=== PATIENT | female | born 1980 | race Caucasian/White ===

== ENCOUNTER 2021-05-30 10:11 | Outpatient (REF) | payer OTHER, SELFPAY ==
[2021-05-30 10:44] LABS: MANUAL DIFF FLAG NO
[2021-05-30 10:49] LABS: Basophils Percent Auto 0.2 % (0-2); Eosinophils Absolute Auto 0.3 X10*3/uL (0.0-0.4); Eosinophils Percent Auto 2.1 % (0-4); Hematocrit 38.1 % (37-47); Hemoglobin 11.3 g/dl (12.0-16.0); Imm Gran Abs Auto 0.08 X10*3/uL (0.00-0.03); Imm Gran Pct Auto 0.7 % (0.0-0.4); Lymphocytes Absolute Auto 4.6 X10*3/uL (1.2-4.9); Lymphocytes Percent Auto 38.3 % (20-40); Mean Corpuscular HGB Conc 29.7 g/dl (31.0-35.0); Mean Corpuscular Hemoglobin 21.4 pg (27.0-33.0); Mean Platelet Volume 9.6 fL (9.4-12.3); Monocytes Absolute Auto 0.5 X10*3/uL (0.1-1.2); Monocytes Percent Auto 3.9 % (2-11); Neutrophils Absolute Auto 6.6 X10*3/uL (2.0-8.3); Neutrophils Percent Auto 54.8 % (45-73); Platelet Count 396 X10*3/uL (160-400); Red Blood Count 5.29 X10*6/uL (4.20-5.50); Red Cell Distribution Width 17.2 % (11.0-16.0); White Blood Count 12.1 X10*3/uL (4.8-10.8)
[2021-05-30 11:55] LABS: Anion Gap 13 (12-20); Blood Urea Nitrogen 8 mg/dL (9-16); Carbon Dioxide 23 mmol/L (22-29); Chloride 105 mmol/L (96-108); Estimated Glomerular Filt Rate > 60; Potassium 4.4 mmol/L (3.3-5.1); Sodium 137 mmol/L (135-145)
== END 2021-05-30 10:12 | disposition home or self-care (01) ==
LOC: HO.LAB 10:11
PROVIDERS: PCP Family Medicine; Visit Provider Family Medicine
DX: I10 Essential (primary) hypertension (principal); R59.1 Generalized enlarged lymph nodes
CPT/HCPCS: 36415; 80051; 82565; 84520; 85025

== ENCOUNTER 2022-05-26 09:44 | Outpatient (REF) | payer OTHER, SELFPAY ==
[2022-05-26 10:52] LABS: Anion Gap 10 (12-20); Blood Urea Nitrogen 10 mg/dL (9-16); Carbon Dioxide 26 mmol/L (22-29); Chloride 105 mmol/L (96-108); Cholesterol 225 mg/dL; Estimated Glomerular Filt Rate > 60; Glucose Fasting 120 mg/dL (60-99); HDL Cholesterol 38 mg/dL; LDL Cholesterol Calculated 163 mg/dl; Potassium 4.2 mmol/L (3.3-5.1); Sodium 137 mmol/L (135-145); Triglycerides 121 mg/dL
== END 2022-05-26 09:45 | disposition home or self-care (01) ==
LOC: HO.LAB 09:44
PROVIDERS: PCP Family Medicine; Visit Provider Family Medicine
DX: I10 Essential (primary) hypertension (principal); E78.00 Pure hypercholesterolemia, unspecified; R73.9 Hyperglycemia, unspecified
CPT/HCPCS: 36415; 80051; 80061; 82565; 82947; 84520

== ENCOUNTER 2022-08-25 10:38 | Outpatient (REF) | payer OTHER, SELFPAY ==
--- NOTE | ~2022-08-25 | XR_ITS ---
EXAMINATION: XR CHEST CLINICAL INFORMATION: Wheezing. COMPARISON: None TECHNIQUE: 2 views of the chest were obtained. FINDINGS: No significant abnormality is noted involving the heart, lungs, mediastinum, bony thorax or soft tissues. XR/XR chest 2V IMPRESSION: Unremarkable chest examination.
== END 2022-08-25 10:39 | disposition home or self-care (01) ==
LOC: HO.XRAY 10:38
PROVIDERS: PCP Family Medicine; Visit Provider Family Medicine
DX: R06.2 Wheezing (principal)
CPT/HCPCS: 71046

== ENCOUNTER 2023-03-25 20:24 | Emergency (ER) | payer OTHER, SELFPAY ==
--- NOTE | ~2023-03-25 | CT_ITS ---
EXAMINATION: CT ANGIOGRAM HEAD CT ANGIOGRAM NECK CLINICAL INFORMATION: Reason for Exam l sided weakness COMPARISON: Same day noncontrast head CT TECHNIQUE: Initial noncontrast art handler imaging of the head and neck was performed. Comparison is made with noncontrast head CT from earlier today. Test bolus sequences followed by intravenous administration 70 mL of Omnipaque 350. Helical imaging was performed in the axial plane from the aortic arch to the skull vertex. Delayed postcontrast imaging of the head was also performed. The data was processed at the vascular technologist's workstation for generation of MIP sequences. Angled MIPs and volume rendered reformatted images were also generated at an offline 3D workstation. Stenoses are assessed in accordance with NASCET criteria unless otherwise indicated. DLP: [id number] examination was performed using dose optimization techniques as appropriate, variously including the following: *Automated exposure control. *Adjustment of mA and/or kV according to patient size (this includes techniques or standardized protocols for targeted exams where dose is matched to indication/reason for exam; i.e. extremities or head). *Use of iterative reconstruction technique. FINDINGS: CT Head: There is no evidence of acute intracranial hemorrhage or edematous territorial infarction. There is no abnormal attenuation within the brain parenchyma. Patino-white matter differentiation is preserved. The ventricles are normal in size and configuration. No evidence for obstructive hydrocephalus. No abnormal mass effect or midline shift. No extra-axial fluid collections. No pathologic intra-axial enhancement or regional oligemia. No acute soft tissue or osseous abnormalities. The mastoid air cells and paranasal sinuses are clear. CT Neck: Increased number of nonpathologically enlarged cervical lymph nodes which may be reactive. Prominent soft tissues of the tongue base, most likely reflecting adenoidal hypertrophy. There is also enlargement of the nasopharyngeal soft tissues. The thyroid gland and remaining cervical soft tissues are within normal limits. No significant abnormalities of the cervical spine. CT Upper Chest: The visualized lung apices and upper mediastinum are within normal limits. Neck CTA: Aortic Arch: Related to patient body habitus, the aortic arch and proximal arch branch vessels are not well evaluated due to extensive artifact Right Common Carotid Artery: Where visualized, no significant stenosis. Cervical Right Internal Carotid Artery: Normal opacification without focal stenosis or occlusion. Left Common Carotid Artery: Where visualized, no significant stenosis. Cervical Left Internal Carotid Artery: Normal opacification without focal stenosis or occlusion. Cervical Right Vertebral Artery: No focal stenosis or occlusion. Cervical Left Vertebral Artery: No focal stenosis or occlusion. Brain CTA: Intracranial Internal Carotid Arteries: No focal stenosis or occlusion. Right Anterior Cerebral Artery: Normal A1 segment. Normal opacification of the distal CALEB segments. Left Anterior Cerebral Artery: Normal A1 segment. Normal opacification of the distal CALEB segments. Anterior Communicating Artery: Normal. Right Middle Cerebral Artery: Normal M1 segment of the MCA without focal stenosis or occlusion. Normal arborization of the distal segments. Left Middle Cerebral Artery: Normal M1 segment of the MCA without focal stenosis or occlusion. Normal arborization of the distal segments. Right Vertebral Artery: Normal V4 segment. Left Vertebral Artery: Normal V4 segment. Basilar Artery: Normal without focal stenosis or occlusion. Normal appearance of the proximal superior cerebellar arteries. Right Posterior Cerebral Artery: Normal P1 segment. Normal opacification of the distal [employer] segments. Left Posterior Cerebral Artery: Normal P1 segment. Normal opacification of the distal FR[employer] segments. Normal opacification of the superior sagittal, straight, transverse, and sigmoid sinuses. CT/CT angio head neck stroke IMPRESSION: 1. No arterial high grade stenosis or large vessel occlusion in the head or neck. Please note that the proximal aortic arch branch vessels are not well evaluated due to artifact related to patient body habitus. 2. Prominent soft tissues at the tongue base and enlargement of the nasopharyngeal soft tissues, likely reflecting adenoidal and lingual tonsillar hypertrophy. Recommend correlation with direct inspection. Impression #[address] West on at 9:08 PM
--- NOTE | ~2023-03-25 | CT_ITS ---
EXAMINATION: CT HEAD WITHOUT CONTRAST (STROKE PROTOCOL) CLINICAL INFORMATION: Stroke protocol. Left-sided weakness COMPARISON: Selected images of the brain MRI of 07/27/2019 TECHNIQUE: Contiguous axial imaging was performed from the skull base to vertex without intravenous administration of contrast. This CT examination was performed using dose optimization techniques as appropriate, variously including the following: *Automated exposure control *Adjustment of mA and/or kV according to patient size (this includes techniques or standardized protocols for targeted exams where dose is matched to indication/reason for exam; i.e. extremities or head) *Use of iterative reconstruction technique DLP: 614 mGy-cm FINDINGS: There is no evidence of acute intracranial hemorrhage, midline shift or mass effect. Patino to white matter differentiation is well preserved. No evidence of acute territorial edematous infarction. Ventricles and cortical sulci are age appropriate. No definite significant abnormal parenchymal attenuation is appreciated. No abnormal extra-axial fluid collection. There is no evidence of hyperdense artery sign. Paranasal sinuses are well-aerated. Osseous calvarium and calvarial soft tissues are unremarkable. Mastoid air cells and middle ear cavities are well-aerated. CT/CT head for stroke IMPRESSION: No acute intracranial pathology. Specifically, there is no evidence of acute intracranial hemorrhage or acute edematous territorial infarction. This critical result was discussed with Anwer at 8:37 PM hours on 03/25/2023. It was ascertained that the content and urgency of the report was understood at the time of direct communication.
--- NOTE | 2023-03-25 20:26 | ECG_ITS ---
Test Reason : STROKE Blood Pressure : / mmHG Vent. Rate : 078 BPM Atrial Rate : 078 BPM P-R Int : 150 ms QRS Dur : 084 ms QT Int : 402 ms P-R-T Axes : 030 025 021 degrees QTc Int : 458 ms Normal sinus rhythm Normal ECG When compared with ECG of 23-DEC-2011 19:45, No significant change was found Referred By: Meño Ferguson Electronically Signed By:CRISTIAN PONCE
[2023-03-25 20:32] LABS: Prothrombin Time Whole Bld POC 11.9 sec (11.1-13.5)
[2023-03-25 20:33] LABS: Glucose, Whole Blood 133 mg/dL (60-115)
--- NOTE | 2023-03-25 20:34 | ED_ITS ---
HPI - Neuro Symptoms/Deficit General Chief Complaint: Stroke Stated Complaint: ? Stoke Alert Time Seen by Provider: 03/25/23 20:26 Source: patient and EMS Mode of arrival: EMS Limitations: no limitations History of Present Illness HPI Narrative: Patient history of depression, migraine headaches comes here for headache on the right side started around 17:30 little more severe than before associated with dizziness patient does get headaches very often almost every other day also has chronic left-sided weakness has seen PCP neurologist in the past with MRI negative had carpal tunnel. No seizure no fever patient also feel nauseated had slow speech Related Data Previous Rx's Medication Instructions Recorded jsliipdepj-vhjbuxhibouxe-vovbhkoq 1 cap PO Q6H PRN headache #20 caps 03/26/23 50 mg-300 mg-40 mg capsule (Fioricet) Allergies Allergy/AdvReac Type Severity Reaction Status Date / Time morphine [MORPHINE] Allergy Intermediate DIFF Verified 03/25/23 21:00 BREATH, CHEST PAIN, shortness of breath shellfish derived Allergy Intermediate HIVES Verified 03/25/23 21:00 [SHELLFISH DERIVED] lisinopril [LISINOPRIL] AdvReac Intermediate COUGH Verified 03/25/23 21:00 shellfish Allergy Unknown rash Uncoded 02/14/18 00:00 Review of Systems Review of Systems: Yes all other systems are reviewed and are negative [facility] Social History Social History Alcohol intake: never Smoked in Last 30 Days: Yes Use of substances other than those prescribed or required for medical reasons: Yes Substance Use Type: Marijuana Substance Use Frequency: Daily Advance Directives: No Advance Directives Information Provided: Yes Patient : No Physical Exam Vital Signs: Vital Signs: Last Vital Signs Temp 98.3 F 03/25/23 22:46 Pulse 80 03/26/23 00:16 Resp 20 03/26/23 00:16 BP 142/59 H 03/26/23 00:16 Pulse Ox 97 03/26/23 00:16 O2 Del Method Room Air 03/26/23 00:16 BMI result Body Mass Index 49.6 Appearance: Alert. Oriented X3. No acute distress. Eyes: PERRLA, No Nystagmus ENT: Pharynx normal. Oral Mucosa moist Neck: Normal inspection. Neck supple. CVS: Normal heart rate and rhythm. Pulses normal. Respiratory: No respiratory distress. Equal air entry bilateral, no wheezing/rales/rhonchi Abdomen: Soft and nontender. Bowel sounds are present, no mass palpable, no CVA tenderness Skin: Skin warm and dry. Normal skin color. Normal skin turgor. Extremities: No lower extremity edema. No calf tenderness Neuro: Oriented X 3. No motor deficit. No sensory deficit.No cerebellar signs , cranial nerves II-XII intact Medications Administered Discontinued Medications Generic Name Dose Route Start Last Admin Trade Name Herberthq PRN Reason Stop Dose Admin Diphenhydramine HCl 50 mg 03/25/23 20:31 03/25/23 21:02 Diphenhydramine Hcl 50 Mg/Ml Vial IVPUSH 03/25/23 20:32 50 mg ONCE ONE Administration Sodium Chloride 1,000 mls @ 999 mls/hr 03/25/23 20:33 03/25/23 22:20 Ns IV 03/25/23 21:33 Infused .Q1H1M ONE Infusion Iohexol 100 ml 03/25/23 20:46 03/25/23 20:46 Iohexol 350 Mg/Ml 100 Ml Infus..Btl IV 03/25/23 20:47 70 ml ONCE ONE Administration Ketorolac Tromethamine 30 mg 03/25/23 23:10 03/25/23 23:39 Ketorolac Tromethamine 30 Mg/Ml Vial IVPUSH 03/25/23 23:11 30 mg ONCE ONE Administration Methylprednisolone Sodium Succinate 125 mg 03/25/23 20:31 03/25/23 21:02 Methylprednisolone Sod Succ 125 Mg/2 Ml Vial IVPUSH 03/25/23 20:32 125 mg ONCE ONE Administration Metoclopramide HCl 10 mg 03/25/23 23:10 03/25/23 23:40 Metoclopramide Hcl 10 Mg/2 Ml Vial IVPUSH 03/25/23 23:11 10 mg ONCE ONE Administration Sumatriptan Succinate 6 mg 03/25/23 21:18 03/25/23 21:48 Sumatriptan Succinate 6 Mg/0.5 Ml Vial SUBCUT 03/25/23 21:19 6 mg ONCE ONE Administration Medical Decision Making Medical Decision Making MDM Narrative: Patient with chronic left-sided weakness with headaches likely migraine had came with dizziness and left-sided weakness which is according to patient's chronic CT head and CTA head neck was negative for CVA case discussed Dr. Shine neurologist patient likely has migraine headache advised to treat migraine headache During stay in the ER patient felt better back to normal at time of discharge speech improved able to ambulate to the bathroom Differential Diagnosis Acute CVA/TIA/complex migraine/conversion syndrome Lab Data [facility] Lab Attestation statement: I reviewed the patient's lab results. 03/25/23 20:44 03/25/23 20:44 Labs: Lab Results 03/25/23 03/25/23 03/25/23 Range/Units 20:27 20:28 20:44 WBC 12.6 H (4.8-10.8) X10*3/uL RBC 4.85 (4.20-5.50) X10*6/uL Hgb 9.3 L (12.0-16.0) g/dl Hct 31.2 L (37.0-47.0) % MCV 64.3 L (80.0-98.0) fL MCH 19.2 L (27.0-33.0) pg MCHC 29.8 L (31.0-35.0) g/dl RDW 18.1 H (11.0-16.0) % Plt Count 392 (160-400) X10*3/uL MPV 9.1 L (9.4-12.3) fL Immature Gran % (Auto) 0.5 H (0.0-0.4) % Neut % (Auto) 57.3 (45-73) % Lymph % (Auto) 34.7 (20-40) % [place] % (Auto) 4.8 (2-11) % Eos % (Auto) 2.5 (0-4) % Baso % (Auto) 0.2 (0-2) % Lymph # (Auto) 4.4 (1.2-4.9) X10*3/uL [place] # (Auto) 0.6 (0.1-1.2) X10*3/uL Eos # (Auto) 0.3 (0.0-0.4) X10*3/uL Baso # (Auto) 0.0 (0.0-0.2) X10*3/uL Abs Immat Gran (auto) 0.06 H (0.00-0.03) X10*3/uL Absolute Neuts (auto) 7.2 (2.0-8.3) x10*3/uL Absolute Nucleated RBC 0.000 (0.0-0.012) X10*3/uL Nucleated RBC % (auto) 0.0 (0.0-0.2) /100WBC PT (10.0-13.1) SEC Whole Blood PT 11.9 (11.1-13.5) sec INR (0.9-1.1) Whole Blood INR 1.0 (0.9-1.1) APTT (26.0-36.4) SEC Sodium (135-145) mmol/L Potassium (3.3-5.1) mmol/L Chloride (96-108) mmol/L Carbon Dioxide (22-29) mmol/L Anion Gap (12-20) BUN (9-16) mg/dL Creatinine (0.5-1.4) mg/dL Estim Creat Clear Calc Estimated GFR POC Glucose 133 H (60-115) mg/dL Random Glucose (60-115) mg/dL Calcium (8.4-10.2) mg/dL Total Creatine Kinase (26-140) U/L Troponin I High Sens (<3.5-17.0) ng/L 03/25/23 03/25/23 03/25/23 Range/Units 20:44 20:44 20:44 WBC (4.8-10.8) X10*3/uL RBC (4.20-5.50) X10*6/uL Hgb (12.0-16.0) g/dl Hct (37.0-47.0) % MCV (80.0-98.0) fL MCH (27.0-33.0) pg MCHC (31.0-35.0) g/dl RDW (11.0-16.0) % Plt Count (160-400) X10*3/uL MPV (9.4-12.3) fL Immature Gran % (Auto) (0.0-0.4) % Neut % (Auto) (45-73) % Lymph % (Auto) (20-40) % [place] % (Auto) (2-11) % Eos % (Auto) (0-4) % Baso % (Auto) (0-2) % Lymph # (Auto) (1.2-4.9) X10*3/uL [place] # (Auto) (0.1-1.2) X10*3/uL Eos # (Auto) (0.0-0.4) X10*3/uL Baso # (Auto) (0.0-0.2) X10*3/uL Abs Immat Gran (auto) (0.00-0.03) X10*3/uL Absolute Neuts (auto) (2.0-8.3) x10*3/uL Absolute Nucleated RBC (0.0-0.012) X10*3/uL Nucleated RBC % (auto) (0.0-0.2) /100WBC PT 10.2 (10.0-13.1) SEC Whole Blood PT (11.1-13.5) sec INR 0.9 (0.9-1.1) Whole Blood INR (0.9-1.1) APTT 30.0 (26.0-36.4) SEC Sodium 138 (135-145) mmol/L Potassium 4.0 (3.3-5.1) mmol/L Chloride 107 (96-108) mmol/L Carbon Dioxide 24 (22-29) mmol/L Anion Gap 11 L (12-20) BUN 9 (9-16) mg/dL Creatinine 0.66 (0.5-1.4) mg/dL Estim Creat Clear Calc 141.7 Estimated GFR > 60 POC Glucose (60-115) mg/dL Random Glucose 110 (60-115) mg/dL Calcium 8.7 (8.4-10.2) mg/dL Total Creatine Kinase 123 (26-140) U/L Troponin I High Sens < 2.7 (<3.5-17.0) ng/L NIH Stroke Scale Internal: Initial- Upon Arrival Time: 20:22 Level of Consciousness: Alert Level of Consciousness Questions: Answers both questions correctly Level of Consciousness Commands: Performs both tasks correctly Best Gaze: Normal Visual: No visual loss Facial Palsy: Normal Motor Arm (Right): No drift Motor Arm (Left): Drift Motor Leg (Right): No drift Motor Leg (Left): Drift Limb Ataxia: Absent Sensory: Normal Best Language: No aphasia Dysarthia: Mild to moderate dysarthria Extinction and Inattention: No abnormality Score: 3 Discharge Plan Discharge Clinical Impression: Migraine-cluster headache syndrome Patient Disposition: Home, Self-Care Instructions: Migraine Headache (ED) Additional Instructions: Your symptoms are likely from migraine Take medication as prescribed Follow-up with your PCP/neurology Prescriptions: New hsoaypziuj-pgfdixqburess-ghom [Fioricet] 50-300-40 mg capsule 1 cap PO Q6H PRN (Reason: headache) Qty: 20 0RF Interventions: ED Discharge Assessment Last Done: 03/26/23 00:25 Discharge Date/Time: 03/26/23 00:26
[2023-03-25 20:38] VITALS: BP 154/81; BP 174/98; PULSE 79; PULSE 97; RESP 16; TEMP 37.1; O2SAT 96; O2SAT 98; BMI 49.6
[2023-03-25] MEDS: iohexoL 350 MG/ML 100 ML INFUS..BTL IV (20:46)
[2023-03-25 20:51] LABS: MANUAL DIFF FLAG NO
[2023-03-25 20:55] LABS: Basophils Percent Auto 0.2 % (0-2); Eosinophils Absolute Auto 0.3 X10*3/uL (0.0-0.4); Eosinophils Percent Auto 2.5 % (0-4); Hematocrit 31.2 % (37.0-47.0); Hemoglobin 9.3 g/dl (12.0-16.0); Imm Gran Abs Auto 0.06 X10*3/uL (0.00-0.03); Imm Gran Pct Auto 0.5 % (0.0-0.4); Lymphocytes Absolute Auto 4.4 X10*3/uL (1.2-4.9); Lymphocytes Percent Auto 34.7 % (20-40); Mean Corpuscular HGB Conc 29.8 g/dl (31.0-35.0); Mean Corpuscular Hemoglobin 19.2 pg (27.0-33.0); Mean Platelet Volume 9.1 fL (9.4-12.3); Monocytes Absolute Auto 0.6 X10*3/uL (0.1-1.2); Monocytes Percent Auto 4.8 % (2-11); Neutrophils Absolute Auto 7.2 x10*3/uL (2.0-8.3); Neutrophils Percent Auto 57.3 % (45-73); Platelet Count 392 X10*3/uL (160-400); Red Blood Count 4.85 X10*6/uL (4.20-5.50); Red Cell Distribution Width 18.1 % (11.0-16.0); White Blood Count 12.6 X10*3/uL (4.8-10.8)
[2023-03-25 21:01] LABS: INTERNATIONAL NORM RATIO 0.9 (0.9-1.1); Prothrombin Time 10.2 SEC (10.0-13.1)
[2023-03-25] MEDS: diphenhydrAMINE HCL 50 MG/ML VIAL IVPUSH (21:02)
[2023-03-25] MEDS: methylPREDNISolone Sod Succ 125 MG/2 ML VIAL IVPUSH (21:02)
[2023-03-25 21:03] LABS: Mean Corpuscular Volume 64.3 fL (80.0-98.0)
[2023-03-25 21:09] LABS: Anion Gap 11 (12-20); Blood Urea Nitrogen 9 mg/dL (9-16); Calcium 8.7 mg/dL (8.4-10.2); Carbon Dioxide 24 mmol/L (22-29); Chloride 107 mmol/L (96-108); Creatinine Clr Calc Pharmacy 141.7; Estimated Glomerular Filt Rate > 60; Glucose Random 110 mg/dL (60-115); Sodium 138 mmol/L (135-145)
[2023-03-25 21:11] LABS: Stroke Lab Use COMPLETE
[2023-03-25] MEDS: 0.9 % Sodium Chloride 1,000 ML 999 ML IV (21:11)
[2023-03-25 21:16] LABS: Troponin-I High Sensitivity < 2.7 ng/L (<3.5-17.0)
[2023-03-25] MEDS: SUMAtriptan succinate 6 MG/0.5 ML VIAL SUBCUT (21:48)
--- NOTE | 2023-03-25 21:52 | PC.NURSE ---
pt medicated per Jan, notified RAGINI Ring
[2023-03-25 22:46] VITALS: BP 151/83; PULSE 76; RESP 20; TEMP 36.8; O2SAT 96
--- NOTE | 2023-03-25 22:46 | PC.NURSE ---
Pt A&Ox4, reports 05/23 constant right sided headache started after dinner at 5:30pm tonight with dizziness x 1 hour. Pt states it feels throbbing and sensitive to light. Pt sent straight to Ct scan, IV line placed. Medicated per JAN. Left sided weakness noted, Dr. Ferguson at bedside, Pt states she usually is weaker on the left side . Pt able to get OOB to bedside commode with staff standby.
[2023-03-25] MEDS: Ketorolac Tromethamine 30 MG/ML VIAL IVPUSH (23:39)
[2023-03-25] MEDS: Metoclopramide HCl 10 MG/2 ML VIAL IVPUSH (23:40)
[2023-03-26 00:16] VITALS: BP 142/59; PULSE 80; RESP 20; O2SAT 97
--- NOTE | 2023-03-26 00:19 | PC.NURSE ---
Pt ambulated to the BR with steady gait. Pt reports some effectiveness to meds given.
== END 2023-03-26 00:26 | disposition home or self-care (01) ==
PROVIDERS: Emergency Provider Internal Medicine
DX: G43.909 Migraine, unspecified, not intractable, without status migrainosus (principal); R53.1 Weakness; R42 Dizziness and giddiness
CPT/HCPCS: 36415; 70450; 70496; 70498; 80048; 82550; 82947; 84484; 85025; 85610; 85730; 93005; 96361; 96372; 96374; 96375; 96376; 99285; J1200; J1885; J2765; J2930; J3030; Q9967

== ENCOUNTER 2023-12-09 11:54 | Outpatient (REF) | payer OTHER, SELFPAY ==
[2023-12-09 13:43] LABS: Anion Gap 11 (12-20); Blood Urea Nitrogen 9 mg/dL (9-16); Carbon Dioxide 25 mmol/L (22-29); Chloride 105 mmol/L (96-108); Estimated Glomerular Filt Rate > 60; Potassium 3.9 mmol/L (3.3-5.1); Sodium 137 mmol/L (135-145)
== END 2023-12-09 11:55 | disposition home or self-care (01) ==
LOC: HO.10HDL 11:54
PROVIDERS: Visit Provider Family Medicine
DX: I10 Essential (primary) hypertension (principal)
CPT/HCPCS: 36415; 80051; 82565; 84520

== ENCOUNTER 2025-02-23 12:27 | Emergency (ER) | payer OTHER, SELFPAY ==
--- NOTE | ~2025-02-23 | XR_ITS ---
CLINICAL HISTORY: scapular pain, decreased ROM 3 view right shoulder Comparison: None Findings: No fractures or dislocations. There is mild narrowing of the acromioclavicular joint with mild degenerative spurring. No erosions. No radiopaque foreign body. IMPRESSION: 1. No acute fracture or dislocation. 2. Mild arthritic changes in the AC joint. This document has been electronically signed by: Carmen Garcia DO on 02/23/2025 13:13:08
[2025-02-23 12:37] VITALS: BP 134/56; PULSE 88; RESP 16; TEMP 36; O2SAT 96; BMI 43.9
--- NOTE | 2025-02-23 12:38 | ED.GENADULT ---
HPI - General Adult General Chief complaint: Extremity Injury, Upper Stated complaint: Right shoulder pain Time Seen by Provider: 02/23/25 12:51 Source: patient Mode of arrival: ambulatory Limitations: no limitations History of Present Illness ED Provider: LISA INMAN PA-C HPI narrative: 44-year-old female with no significant pmhx presents to the ED today for evaluation of right shoulder pain x1 week. Pain began while she was carrying a heavy package of water. Also endorses recent heavy lifting, moving multiple tables. Reports pain to her entire shoulder with minimal radiation into her right neck. Pain is worse with movement of the right shoulder. She has trialed aleve, ice, and head without improvement. Admits pain is controlled at rest. She denies any chest pain, SOB or palpitations. Denies trauma or blunt injury. Related Data Previous Rx's ?Medication ?Instructions ?Recorded odxbinpoww-phshnlvllbysx-ojjgghsg 1 cap PO Q6H PRN headache #20 caps 03/26/23 50 mg-300 mg-40 mg capsule (Fioricet) lidocaine 5 % topical patch 1 patch topical DAILY #15 ea 02/23/25 (Lidoderm) prednisone 50 mg tablet 50 mg PO DAILY 4 days #4 tabs 02/23/25 Allergies Allergy/AdvReac Type Severity Reaction Status Date / Time morphine [MORPHINE] Allergy Intermediate DIFF Verified 02/23/25 12:40 BREATH, CHEST PAIN, shortness of breath shellfish derived Allergy Intermediate HIVES Verified 02/23/25 12:40 [SHELLFISH DERIVED] lisinopril [LISINOPRIL] AdvReac Intermediate COUGH Verified 02/23/25 12:40 shellfish Allergy Unknown rash Uncoded 02/14/18 00:00 Review of Systems Review of Systems: Yes all other systems are reviewed and are negative [facility] Past Medical History Attestation statement: The following information was validated with the patient. Source: old records reviewed and nursing notes reviewed Social History Social History Alcohol intake: never Substance Use Type: Marijuana Advance Directives: No Advance Directives Information Provided: No Do you have a plan to hurt others: No Plan Physical Exam ED Vital Signs: Vital Signs - 24 hr 02/23/25 12:37 Temperature 96.8 F Pulse Rate 88 Respiratory Rate 16 Blood Pressure 134/56 L Pulse Oximetry 96 Oxygen Delivery Method Room Air BMI result Body Mass Index 43.9 General: Well appearing, in no acute distress. Skin: Warm, dry, intact. No rashes or lesions. Head: Normocephalic, atraumatic. EENT: Hearing is intact b/l. Conjunctiva clear. PERRLA. EOM intact. Moist mucous membranes.? Neck: Supple without LAD. from intact to c spine. Cardiac: Chest wall symmetric. RRR. no reproducible tenderness to chest wall. Lungs: Normal respiratory effort without accessory muscle use. CTA bilaterally. Abdomen: Soft, non-tender, non-distended Back: No midline spinous or paraspinal tenderness. No step off deformity. Ext: +no overlying skin changes noted to right shoulder. no swelling or deformity. ttp along right AC joint and scapula with decreased ROM. able to abduct right shoulder to 45 degrees prior to onset of pain. 2+radial/ulnar pulses. Neuro: AOx3. Normal speech. Ambulating with steady gait. Course Course Course Narrative: This is a rapid medical exam performed by Yareli Wallace NP: Additional HPI, ROS, PE not included below will be deferred to primary provider. Patient is a 44-year-old right hand dominant female presenting with right shoulder pain x 1 week. Denies injury, states symptoms began after moving tables. Scapular pain with decreased ROM. Has tried Aleve, Tylenol, ice and heat, only POC is laying flat. Plan: xray Reevaluation(s) Reevaluation #1: 6306 -- XR right shoulder shows mild arthritic changes to AC joint. No fracture or dislocation. > improvement w/ toradol, flexeril, and lido patch. patient placed in sling for comfort. concern for rotator cuff pathology. will trial Prednisone. advised to f/u with ortho outpatient - referral provided. Patient has remained stable throughout ED visit today. Discussed worrisome signs and symptoms and when to return to the ED. All questions answered at this time. Patient is agreeable with disposition and stable for discharge. Medications Administered Discontinued Medications Generic Name Dose Route Start Last Admin Trade Name Freq PRN Reason Stop Dose Admin Cyclobenzaprine HCl 10 mg 02/23/25 13:25 02/23/25 13:35 Cyclobenzaprine Hcl 10 Mg Tablet PO 02/23/25 13:26 10 mg ONCE ONE Administration Ketorolac Tromethamine 30 mg 02/23/25 13:25 02/23/25 13:35 Ketorolac Tromethamine 30 Mg/Ml Vial IM 02/23/25 13:26 30 mg ONCE ONE Administration Lidocaine 1 patch 02/23/25 13:25 02/23/25 13:34 Lidocaine 4 % Patch Adh..Patch TRANSDERMA 02/23/25 13:26 1 patch ONCE ONE Administration Protocol Procedures Orthopedic Splinting/Casting Injury #1: Side: right Upper Extremity Injury Location: shoulder Upper Extremity Immobilizer: sling/shoulder immobilizer Medical Decision Making Medical Decision Making MDM Narrative: 44-year-old female with no significant pmhx presents to the ED today for evaluation of right shoulder pain x1 week. vital signs stable. she is nontoxic appearing and in NAD. on exam of RUE, there is no overlying skin changes noted to right shoulder. no swelling or deformity. ttp along right AC joint and scapula with decreased ROM. able to abduct right shoulder to 45 degrees prior to onset of pain. 2+radial/ulnar pulses. no rashes. Differential diagnosis includes arthritis, bursitis, tendonitis, rotator cuff injury. Lower suspicion for cervical radiculopathy. Presentation not consistent with gout, pseudogout. Unlikely nv compromise, threat to limb, compartment syndrome, DVT, septic joint, Lyme arthritis. Unlikely ACS. Plan for xrays, pain control, and re-evaluation. Differential Diagnosis Differential Diagnoses: The differential diagnosis associated with the presentation includes as above. Admission/Observation not indicated. Independent Interpretation I performed an independent interpretation of an: Plain X-Ray Interpretation: xr right shoulder without fracture or dislocation Radiology Impression Discussion of test interpretation with radiology: I have reviewed the radiologist's reading. Radiologist Impression: Procedure(s): XR shoulder RT min 2V Accession Number(s): [id number] cc: Cesar Ryan MD; Lisa Wallace NP~ CLINICAL HISTORY: scapular pain, decreased ROM 3 view right shoulder Comparison: None Findings: No fractures or dislocations. There is mild narrowing of the acromioclavicular joint with mild degenerative spurring. No erosions. No radiopaque foreign body. IMPRESSION: 1. No acute fracture or dislocation. 2. Mild arthritic changes in the AC joint. Prescription Management I considered prescription management with: Pain Medication and Other (prednisone) Social Determinants Patient?s care significantly limited by Social Determinants of Health including: Other Social Determinant of Health Critical Care Time Critical Care Time Critical Care Time: No Discharge Plan Discharge Clinical Impression: Arthritis, Rotator cuff arthropathy Patient Disposition: Home, Self-Care Instructions: Osteoarthritis (ED), Rotator Cuff Injury Exercises (DC) Additional Instructions: Your xray show mild arthritic changes to AC joint. No fracture or dislocation. I have provided you with a sling for comfort. As discussed, take your arm out of the sling multiple times a day to prevent frozen shoulder. I recommend you take 600mg ibuprofen every 6 hours or Tylenol 650mg every 6 hours as needed for pain. If needed, you can alternate these medications so that you take one medication every 3 hours. For example, at noon take ibuprofen, then at 3pm take Tylenol, then at 6pm take ibuprofen. I'm sending Prednisone to your pharmacy. Take this as prescribed for the next 4 days. Take your next dose tomorrow as you already received a dose in ED today. Follow up with PCP/ orthopedic provider. You have been provided with a referral. Return to the ED with new or worsening symptoms. In the case of an emergency call 911. Prescriptions: New prednisone 50 mg tablet 50 mg PO DAILY 4 Days Qty: 4 0RF lidocaine [Lidoderm] 5 % adhesive patch,medicated 1 patch topical DAILY Qty: 15 0RF Rx Instructions: leave on most painful area for up to 12 hrs No Action ihxloierye-kezgmbmavgcif-vqaj [Fioricet] 50-300-40 mg capsule 1 cap PO Q6H PRN (Reason: headache) Qty: 20 0RF Referrals: [facility] [place] Group] Cesar Ryan MD [Primary Care Provider] - Print Language: [place]i
[2025-02-23] MEDS: Lidocaine 4 % Patch ADH..PATCH 1 PATCH TRANSDERMA (13:34)
[2025-02-23] MEDS: Ketorolac Tromethamine 30 MG/ML VIAL IM (13:35)
[2025-02-23] MEDS: Cyclobenzaprine HCl 10 MG TABLET PO (13:35)
[2025-02-23 15:05] VITALS: BP 139/55; PULSE 76; RESP 15; TEMP 36.5; O2SAT 99
[2025-02-23] MEDS: predniSONE 10 MG TABLET 50 MG PO (15:27)
[2025-02-23 15:30] VITALS: BP 139/55; PULSE 76; RESP 15; TEMP 36.5; O2SAT 99
== END 2025-02-23 15:31 | disposition home or self-care (01) ==
PROVIDERS: Emergency Provider Emergency Medicine; PCP Internal Medicine
DX: M75.101 Unspecified rotator cuff tear or rupture of right shoulder, not specified as traumatic (principal); M25.511 Pain in right shoulder
CPT/HCPCS: 73030; 96372; 99283; 99284; J1885

== ENCOUNTER → 2025-02-23 12:38 | Outpatient (BNV) | payer OTHER, SELFPAY | PROVIDERS: Emergency Provider Emergency Medicine; PCP Internal Medicine; Visit Provider Radiology Diagnostic Radiology | DX: M25.511 Pain in right shoulder (principal) | CPT/HCPCS: 73030 ==